=== PATIENT | female | born 2000 | race Caucasian/White ===

== ENCOUNTER 2024-05-28 12:27 | Outpatient (CLI) | payer MEDICAID, SELFPAY ==
--- NOTE | 2024-05-28 13:00 | US_ITS ---
WS: [id number] ULTRASOUND BREAST BILATERAL TECHNIQUE: Ultrasound bilateral breast focused area of concern. CLINICAL INFORMATION: N63.0 - Unspecified lump in unspecified breast COMPARISON: None. FINDINGS: RIGHT BREAST: Ultrasound RIGHT breast area of concern patient directed at the 8:00 and 10:00 position s. Normal underlying parenchymal tissue. No cystic or solid lesions. No suspicious lesions to target for biopsy. LEFT BREAST: Ultrasound LEFT breast areas of concern patient directed at the 12:00 and 2:00 positions . Dense underlying parenchymal tissue. No cystic or solid lesions. No suspicious lesions to target fo r biopsy. US/US breast BI limited* [id number] IMPRESSION: Findings are benign. No suspicious lesions. BI-RADS 2 Recommend annual screening mammography age 40
== END 2024-05-28 12:28 | disposition home or self-care (01) ==
PROVIDERS: Visit Provider Nurse Practitioner Women's Health
DX: N63.13 Unspecified lump in the right breast, lower outer quadrant (principal); N63.21 Unspecified lump in the left breast, upper outer quadrant
CPT/HCPCS: 76642